=== PATIENT | male | born 1990 | race Caucasian/White ===

== ENCOUNTER 2018-12-03 12:37 | Emergency (ER) | payer OTHER, SELFPAY ==
[2018-12-03 12:38] VITALS: BP 146/90; PULSE 110; RESP 17; TEMP 36.7; O2SAT 96; BMI 27.1
[2018-12-03 12:55] VITALS: BP 153/99; PULSE 107; RESP 16; O2SAT 95
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
== END 2018-12-03 15:07 | disposition home or self-care (01) ==
PROVIDERS: Emergency Provider Emergency Medicine
DX: S01.81XA Laceration without foreign body of other part of head, initial encounter (principal); S80.02XA Contusion of left knee, initial encounter; S10.93XA Contusion of unspecified part of neck, initial encounter; V87.8XXA Person injured in other specified noncollision transport accidents involving motor vehicle (traffic), initial encounter; Y93.53 Activity, golf; Y92.39 Other specified sports and athletic area as the place of occurrence of the external cause; Y99.8 Other external cause status
CPT/HCPCS: 12011; 73564; 99284